=== PATIENT | male | born 1985 | race Caucasian/White ===

== ENCOUNTER 2021-12-29 07:17 | Day surgery (SDC) | payer OTHER ==
[2021-12-29] MEDS ORDERED: PERCOCET 5-3251 EACH PO (15:22)
== END 2021-12-29 17:50 | disposition home or self-care (01) ==
LOC: CIR.AMB 07:17
PROVIDERS: ATTEND Surgery
DX: L72.12 Trichodermal cyst (principal); Z20.822 Contact with and (suspected) exposure to COVID-19; Z86.16 Personal history of COVID-19